=== PATIENT | female | born 1990 | race African-American/Black ===

== ENCOUNTER 2018-10-10 18:37 | Emergency (ER) | payer OTHER ==
[~2018-10-10] VITALS: Ht 165.1 cm; Wt 106.6 kg
[2018-10-10] MEDS ORDERED: KEPPRA 500 MG500 M1 PO (18:49)
[2018-10-10] MEDS ORDERED: ZONEGRAN100 MG PO (18:49)
[2018-10-10] MEDS ORDERED: IBUPROFEN 800800 M1 PO (19:39)
[2018-10-10] MEDS ORDERED: ROBAXIN500 MG PO (19:39)
[2018-10-10 19:50] VITALS: BP 142/95
== END 2018-10-10 19:51 | disposition home or self-care (01) ==
LOC: M.ERS 18:37
DX: S16.1XXA Strain of muscle, fascia and tendon at neck level, initial encounter (principal); M62.838 Other muscle spasm; G40.909 Epilepsy, unspecified, not intractable, without status epilepticus; V59 Occupant of pick-up truck or van injured in other and unspecified transport accidents; Y93.89 Activity, other specified; Y92.89 Other specified places as the place of occurrence of the external cause; Y99.8 Other external cause status

== ENCOUNTER → 2018-12-02 | Outpatient (CLI) | payer OTHER ==
[~2018-12-02] MED LIST: IBUPROFEN 800800 M1 PO; KEPPRA 500 MG500 M1 PO; ROBAXIN500 MG PO; ZONEGRAN100 MG PO
== END ==
LOC: M.RAD 11-28 14:17 → M.ULTRA 10:00
DX: N63.12 Unspecified lump in the right breast, upper inner quadrant (principal); N63.22 Unspecified lump in the left breast, upper inner quadrant; K82.8 Other specified diseases of gallbladder; E66.8 Other obesity